=== PATIENT | male | born 1960 | race Caucasian/White ===

== ENCOUNTER 2017-05-16 19:32 | Inpatient (IN) | payer MEDICAID ==
[~2017-05-16] VITALS: Ht 175.3 cm; Wt 70.3 kg
--- NOTE | 2017-05-16 19:40 | NUR ---
PT BIBRA FOR SOB/LABORED BREATHING; "RECENTLY DX WITH PNA AT [facility]" PT AOX3 RR EVEN AND UNLABORED. NO SOB NOTED. NAD NOTED. NO NVD AT THIS TIME. PT GOWNED AND PLACED ON MONITOR WAITING FOR MD NOGUEIRA.
--- NOTE | 2017-05-16 19:54 | NUR ---
LAB AT BEDSIDE FOR EVAL.
[2017-05-16] MEDS ORDERED: IV NS 0.9% 1,000 ML BAG IV ONE ×2 (20:00→21:00)
[2017-05-16 20:06] LABS: BASOPHILS % (AUTO) 0.4 % (0.0-2.0); EOSINOPHILS # (AUTO) 0.7 /CMM (0.0-0.7); EOSINOPHILS % (AUTO) 7.4 % (0.0-6.0); HEMATOCRIT 26 % (39-51); HEMOGLOBIN 7.7 g/dL (13.5-17.5); LYMPHOCYTES % (AUTO) 33.2 % (20.0-44.0); MEAN CORPUSCULAR HEMOGLOBIN 22 PG (26.0-33.0); MEAN CORPUSCULAR HGB CONC 30 g/dl (31.0-36.0); MEAN CORPUSCULAR VOLUME 73 fL (80-96); MONOCYTES # (AUTO) 0.7 /CMM (0.1-1.30); MONOCYTES % (AUTO) 7.4 % (2.0-12.0); NEUTROPHILS # (AUTO) 4.5 /CMM (1.8-8.9); NEUTROPHILS % (AUTO) 51.6 % (43.0-81.0); PLATELET COUNT (AUTO) 506 /CMM (150-450); RDW COEFFICIENT OF VARIATION 17.5 (11.5-15.0); RED BLOOD CELL COUNT(AUTO) 3.52 MIL/uL (4.5-6.0); WHITE BLOOD COUNT (AUTO) 8.9 K/uL (4.3-11.0)
[2017-05-16 20:15] LABS: CALCIUM, SERUM 8.2 mg/dL (8.5-10.1); CARBON DIOXIDE 17 mmol/L (21-32); CHLORIDE 103 mmol/L (98-107); CREATININE 1.1 mg/dL (0.6-1.3); GLUCOSE 243 mg/dL (74-106); POTASSIUM 3.7 mmol/L (3.5-5.1); SODIUM SERUM 135 mmol/L (136-145); UREA NITROGEN, BLOOD 13 mg/dL (7-18)
[2017-05-16 20:19] LABS: INR 1.04 (0.87-1.13)
--- NOTE | 2017-05-16 20:21 | NUR ---
RECTAL TEMP 93.8. DR KOVACS MADE AWARE
[2017-05-16 20:23] LABS: TROPONIN I 0.131 ng/mL (0.00-0.056)
--- NOTE | 2017-05-16 20:25 | NUR ---
PT PLACED ON BARE HUGGER PER
[2017-05-16 20:28] LABS: ALANINE AMINOTRANSFERASE 18 U/L (12-78); ALBUMIN 3.2 g/dL (3.4-5.0); ALKALINE PHOSPHATASE 115 U/L (46-116); ASPARTATE AMINOTRANSFERASE 23 U/L (15-37); B-TYPE NATRIURETIC PEPTIDE 286 PG/ML (0-125); BILIRUBIN,TOTAL 0.2 mg/dL (0.2-1.0); TOTAL PROTEIN, SERUM 7.5 g/dL (6.4-8.2)
--- NOTE | 2017-05-16 20:51 | NUR ---
AT BEDSIDE FOR EVAL.
--- NOTE | 2017-05-16 20:52 | NUR ---
INFLUENZA SWAB COLLECTED. CALLED LAB FOR RECEIVER/LABORER.
--- NOTE | 2017-05-16 20:58 | NUR ---
PRASANNA AT BEDSIDE
[2017-05-16] MEDS ORDERED: PANTOPRAZOLE 40 MG VIAL IV ONE (21:00)
[2017-05-16] MEDS ORDERED: IV NS 0.9% 500 ML BAG IV ONE (21:00)
[2017-05-16] MEDS ORDERED: ASPIRIN 325 MG TABLET ONE (21:00)
[2017-05-16] MEDS ORDERED: PANTOPRAZOLE 40 MG VIAL ONE (21:00)
[2017-05-16] MEDS ORDERED: PIPERACILLIN /TAZOBACTAM 3.375 G in IV D5W 50 ML IV ONE (21:00)
[2017-05-16] MEDS ORDERED: ASPIRIN 325 MG TABLET PO ONE (21:00)
[2017-05-16] MEDS ORDERED: PIPERACILLIN /TAZOBACTAM 3.375 G VIAL IV ONE (21:13)
[2017-05-16] MEDS ORDERED: IOHEXOL-350 100 ML VIAL IV ONE (21:24)
[2017-05-16] MEDS ORDERED: IV NS 0.9% 250 ML IV ONE (21:24)
[2017-05-16 21:30] VITALS: BP 150/100
--- NOTE | 2017-05-16 21:31 | NUR ---
PT TO CT.
--- NOTE | 2017-05-16 21:31 | NUR ---
RN NOTES RECEIVED PATIENT AWAKE VIA STRETCHER FROM ER WITH NO DISTRESS NOTED. BREATHING EVEN AND UNLABORED. ON O2 AT 2LPM VIA NASAL CANNULA WELL TOLERATED. ALERT AND ORIENTED, VERBALLY ABLE TO COMMUNICATE NEEDS. NO COMPLAINT OF PAIN OR DISCOMFORT. CONTINENT OF BOWEL AND BLADDER FUNCTION. WILL CONTINUE TO MONITOR. KEPT CLEAN AND DRY.
--- NOTE | 2017-05-16 21:40 | NUR ---
REPORT GIVEN TO JAGUAR GARCÍA FOR SAL.
[2017-05-16] MEDS ORDERED: ENOXAPARIN SODIUM 40 MG/0.4 ML DISP.SYRIN SQ ONE (21:43)
[2017-05-16] MEDS ORDERED: ENOXAPARIN SODIUM 30 MG/0.3 ML DISP.SYRIN ONE (21:43)
--- NOTE | 2017-05-16 21:51 | NUR ---
patient returned from ct via [facility]
--- NOTE | 2017-05-16 21:55 | NUR ---
UNABLE TO COLLECT URINE AT THIS TIME. DR. KOVACS MADE AWARE
--- NOTE | 2017-05-16 21:56 | NUR ---
LAB AT BEDSIDE FOR BLOOD DRAW
--- NOTE | 2017-05-16 22:03 | NUR ---
REPORT GIVEN TO CLARENCE FOR FELI BED 118.
--- NOTE | 2017-05-16 22:07 | NUR ---
PT REASSIGNED TO FELI BED 109
--- NOTE | 2017-05-16 22:16 | NUR ---
INFORMED RN SHELL TO COLLECT UA D/T UNABLE TO COLLECT UA AT THIS TIME.
[2017-05-16] MEDS ORDERED: ZOLPIDEM TARTRATE 5 MG TABLET PO PRN (23:30)
[2017-05-16] MEDS ORDERED: HEPARIN INFUSION/D5W 500 ML IV PRN (23:30)
[2017-05-16] MEDS ORDERED: MAGNESIUM HYDROXIDE 30 ML UDC PO PRN (23:30)
[2017-05-16] MEDS ORDERED: ACETAMINOPHEN 325 MG TABLET PO PRN (23:30)
[2017-05-16] MEDS ORDERED: Z GUARD REMEDY 2 OZ OINT TP PRN (23:30)
[2017-05-16] MEDS ORDERED: DEXTROSE 50%-WATER 50 ML DISP.SYRIN IV PRN (23:30)
[2017-05-16] MEDS ORDERED: ONDANSETRON HCL/PF 4 MG/2 ML VIAL IVP PRN (23:30)
[2017-05-17] VITALS (27 sets, daily range): BP systolic 113–156; BP diastolic 54–127
[2017-05-17] MEDS: IV NS 0.9% 1,000 ML IV PRN ×2 (00:16→09:34)
[2017-05-17] MEDS ORDERED: HEPARIN INFUSION/D5W 500 ML IV ONE (00:38)
[2017-05-17] MEDS ORDERED: HEPARIN SODIUM, PORCINE 5000 UNITS/1 ML VIAL IVP ONE (01:00)
[2017-05-17] MEDS: PIPERACILLIN /TAZOBACTAM 3.375 G in IV D5W 50 ML IV SCH ×5 (01:00→23:42)
--- NOTE | 2017-05-17 01:00 | NUR ---
RN NOTES ZOSYN FOR 0100 NOT GIVEN. INITIAL DOSE GIVEN AT ER AT 2100. NEXT DOSE TO BE GIVEN AT 0600
[2017-05-17 02:32] LABS: TROPONIN I 0.499 ng/mL (0.00-0.056)
[2017-05-17] MEDS ORDERED: PIPERACILLIN /TAZOBACTAM 3.375 G VIAL IV ONE (05:44)
[2017-05-17] MEDS ORDERED: HYDROCODONE/APAP 5/325MG 1 EACH TABLET ONE (05:45)
[2017-05-17] MEDS: HYDROCODONE/APAP 5/325MG 1 EACH TABLET PO PRN (05:47)
[2017-05-17] MEDS ORDERED: MORPHINE SULFATE INJ 2 MG/ML DISP.SYRIN IV PRN (06:30)
[2017-05-17] MEDS ORDERED: MORPHINE SULFATE INJ 4 MG/ML DISP.SYRIN ONE (06:32)
[2017-05-17 06:33] LABS: BASOPHILS % (AUTO) 0.4 % (0.0-2.0); EOSINOPHILS # (AUTO) 0.5 /CMM (0.0-0.7); EOSINOPHILS % (AUTO) 5.2 % (0.0-6.0); HEMATOCRIT 22 % (39-51); LYMPHOCYTES # (AUTO) 2.9 /CMM (0.8-4.8); LYMPHOCYTES % (AUTO) 28.1 % (20.0-44.0); MEAN CORPUSCULAR HEMOGLOBIN 22 PG (26.0-33.0); MEAN CORPUSCULAR HGB CONC 31 g/dl (31.0-36.0); MEAN CORPUSCULAR VOLUME 72 fL (80-96); MONOCYTES # (AUTO) 0.9 /CMM (0.1-1.30); NEUTROPHILS # (AUTO) 5.9 /CMM (1.8-8.9); NEUTROPHILS % (AUTO) 57.3 % (43.0-81.0); PLATELET COUNT (AUTO) 499 /CMM (150-450); RDW COEFFICIENT OF VARIATION 18.3 (11.5-15.0); RED BLOOD CELL COUNT(AUTO) 3.05 MIL/uL (4.5-6.0); WHITE BLOOD COUNT (AUTO) 10.2 K/uL (4.3-11.0)
[2017-05-17 06:44] LABS: CREATININE 0.8 mg/dL (0.6-1.3); MAGNESIUM 1.7 mg/dL (1.8-2.4); PHOSPHORUS 3.7 mg/dL (2.5-4.9); POTASSIUM 3.9 mmol/L (3.5-5.1)
[2017-05-17 06:45] LABS: HEMOGLOBIN 6.8 g/dL (13.5-17.5)
[2017-05-17] MEDS: BLOOD SUGAR DIAGNOSTIC 1 EACH STRIP IN SCH ×4 (07:16→22:02)
--- NOTE | 2017-05-17 07:22 | NUR ---
RN NOTES RESIDENT COMPLAINING OF CHEST PAIN AT 0600, PAIN WORST DURING INHALATION. GAVE NORCO 5/325, NOT EFFECTIVE. CALLED MD AND OBTAINED ORDER FOR MORPHINE 2MG Q4 HOURS FOR SEVERE PAIN. ADMINISTERED 2MG AT 0630, WITH A SLIGHT RELIEF. LABS CALLED REGARDING HGB 6.8 AND TROPONIN OF 0.497. RELAYED TO MD AND ENDORSED TO AM SHIFT. VITAL SIGNS WNL. REPOSITION FOR COMFORT. KEPT CLEAN AND DRY
[2017-05-17] MEDS: HYDROMORPHONE INJ 2 MG/ML DISP.SYRIN IV PRN ×2 (07:50→12:24)
--- NOTE | 2017-05-17 07:55 | NUR ---
FELI RN NOTE PATIENT IN BED , ALERT ,ORIENTED ON HEPARIN DRIP ORDERED PER GLENNY PTT 77.0, [place] 6 [place] [address] AND WILL START NOW AT 1100 PER HOSPITAL PROTOCOL ON2L NC SAT 93% RT FA HL INTACT AND LT AC HL INTACT NO S\S INFECTION ,BED IN LOWEST AND LOCKED POSITION, SEEN BY KIRSTIE MONTESINOS FILTER TIP CATCHER NOTIFIED THAT PATIENT WITH SEVERE CHEST PAIN MORPHINE NOR HELP WITH PAIN ORDERED, DILAUDID , ALSO NOTIFIED THAT HG 6.8 STATED RECHECK IN 1200 CBC ALSO AWARE THAT TROPONIN 0.497, STATED MONITOR PATIENT BED IN LOWEST AND LOCKED POSITION , CALL LIGHT WITHIN REACH WILL CONT TO MONITOR CLOSELY
--- NOTE | 2017-05-17 08:01 | NUR ---
RN NOTES HEPARIN STARTED 0119 AND ATTEMPTED TO DOCUMENT HOURLY IV INFUSION BUT UNABLE TO SAVE. TOTAL DOSE INFUSED OF 06 AFTER 5 HOURS IS 125ML.
[2017-05-17] MEDS ORDERED: EMTR1TAB17 PO (08:26)
[2017-05-17] MEDS ORDERED: GABA-534 PO (08:26)
[2017-05-17] MEDS ORDERED: DOLU50TA PO (08:26)
[2017-05-17] MEDS ORDERED: METO-356 PO (08:26)
[2017-05-17 09:29] LABS: IRON, SERUM 9 ug/dl (50-175); TOTAL IRON BINDING CAPACITY 421 ug/dl (250-450)
--- NOTE | 2017-05-17 09:30 | NUR ---
FELI RN NOTE \ DR MCDERMOTT AWARE THAT GF 6.7 WITH ORDER TO TRANSFUSE 1 UNIT PRBC ORDER CARRIED OUT
[2017-05-17] MEDS: Magnesium 1GM/D5W 100ML PREMIX 100 ML IV SCH ×2 (09:34→10:38)
--- NOTE | 2017-05-17 10:00 | NUR ---
PROFESSIONAL SYSTEM ADMINISTRATOR NOTE DR CHAVEZ NOTIFIED THAT TROPONIN 0.497 STATED THAT WILL SEE PATIENT
[2017-05-17 10:35] LABS: EOSINOPHILS % (MANUAL) 1 % (0-4); LYMPHOCYTES % (MANUAL) 31 % (16-48); MONOCYTES % (MANUAL) 5 % (0-11.0); NEUTROPHILS % (MANUAL) 63 (42-76)
--- NOTE | 2017-05-17 10:53 | NUR ---
FELI RN NOTE PER DR MCDERMOTT OK TO STOP HEPARIN DRIP
--- NOTE | 2017-05-17 10:56 | NUR ---
FELI RN NOTE PER DR CHAVEZ OK TO TRANSFER TO ICU FOR FURTHER EVAL
--- NOTE | 2017-05-17 11:20 | NUR ---
PHYTOPATHOLOGIST NOTE TRANSFERRED TO ICU BY ACLS PROTOCOL BY BED ,REPORT GIVEN TO NELSON MONTESINOS
--- NOTE | 2017-05-17 11:30 | NUR ---
INITIAL MILKING MACHINE OPERATOR NOTE RCVD PT AWAKE AND ALERT, SHOWING NO S/O DISTRESS AT THIS TIME. PT C/O PAIN OVER CHEST AREA, "FEELS LIKE HE HAS BUBBLES/GAS OVER CHEST". ST ON TELE. TOLERATING O2 VIA NC 6L. VOIDING TO URINAL PER REPORT. IV ACCESSES C/D/I/PATENT. NO S/O INFILTRATION/PHLEBITIS OBSERVED UPON FLUSHING, IVF INFUSING. WILL CONTINUE TO MONITOR PT FOR SAFETY AND COMFORT. CALL LIGHT WITHIN REACH.
[2017-05-17 11:33] LABS: ABG BASE EXCESS -2.5 mmol/L; ABG OXYGEN SATURATION 96.2 % (92.0-98.5); ABG PCO2 35.4 mmHg (35.0-45.0); ABG PH 7.409 (7.350-7.450); ABG PO2 91.8 mmHg (75.0-100.0); AaDO2 174.3 mmHg; COHb 0.6 % (0.5-1.5); MetHb 0.6 % (0.0-1.5); SITE, ABG Right Radial; VENT MODE, BG 6L N/C
[2017-05-17] MEDS: HEPARIN INFUSION/D5W 500 ML IV PRN (11:59)
[2017-05-17] MEDS ORDERED: HEPARIN INFUSION/D5W 500 ML IV PRN (12:00)
--- NOTE | 2017-05-17 12:19 | NUR ---
DEAN OF BOYS NOTE VASU, CRN SPOKE WITH DR. ANAYA WHO RECOMMENDED TO RESUME HEPARIN GTT. MEDICATION ORDERED AND STARTED PER PROTOCOL. DR. CHANDLER IN UNIT ASSESSING PT RECOMMENDED TO HOLD OFF ON ANY GI PROCEDURE PENDING BLOOD TRANSFUSION, IF HGB STABLE POST-TRANSFUSION THEN PT TO BE OBSERVED FOR ANY ACTIVE BLEEDING.
[2017-05-17 12:29] LABS: BASOPHILS % (AUTO) 0.1 % (0.0-2.0); EOSINOPHILS # (AUTO) 0.2 /CMM (0.0-0.7); EOSINOPHILS % (AUTO) 1.8 % (0.0-6.0); HEMATOCRIT 21 % (39-51); LYMPHOCYTES # (AUTO) 2.1 /CMM (0.8-4.8); LYMPHOCYTES % (AUTO) 16.2 % (20.0-44.0); MEAN CORPUSCULAR HEMOGLOBIN 22 PG (26.0-33.0); MEAN CORPUSCULAR HGB CONC 31 g/dl (31.0-36.0); MEAN CORPUSCULAR VOLUME 71 fL (80-96); MONOCYTES # (AUTO) 1.1 /CMM (0.1-1.30); MONOCYTES % (AUTO) 8.6 % (2.0-12.0); NEUTROPHILS # (AUTO) 9.7 /CMM (1.8-8.9); NEUTROPHILS % (AUTO) 73.3 % (43.0-81.0); PLATELET COUNT (AUTO) 450 /CMM (150-450); RDW COEFFICIENT OF VARIATION 19.3 (11.5-15.0); RED BLOOD CELL COUNT(AUTO) 2.97 MIL/uL (4.5-6.0); WHITE BLOOD COUNT (AUTO) 13.3 K/uL (4.3-11.0)
[2017-05-17 13:24] LABS: HEMOGLOBIN 6.6 g/dL (13.5-17.5)
[2017-05-17] MEDS: SOD FERRIC GLUC 125 MG in IV NS 0.9% 100 ML IV SCH (13:37)
[2017-05-17 13:42] LABS: LYMPHOCYTES % (MANUAL) 18 % (16-48); MONOCYTES % (MANUAL) 4 % (0-11.0); NEUTROPHILS % (MANUAL) 78 (42-76)
[2017-05-17] MEDS: PANTOPRAZOLE 40 MG VIAL IV SCH (15:39)
--- NOTE | 2017-05-17 16:22 | NUR ---
AUTOMATIC MACHINES SUPERVISOR NOTE PT TOLERATED FIRST UNIT OF BLOOD, NO REACTIONS OBSERVED/REPORTED BY PT. WILL CONTINUE TO MONITOR. SECOND UNIT STARTED.
[2017-05-17] MEDS: INSULIN REGULAR, HUMAN 100 UNIT/ML 3 ML VIAL SQ PRN ×2 (17:49→23:10)
--- NOTE | 2017-05-17 18:38 | NUR ---
SMALL BUSINESS BANKING OFFICER NOTE PT TOLERATED SECOND UNIT OF BLOOD. NO REACTIONS REPORTED/OBSERVED, VITAL SIGNS REMAIN STABLE. NO WHEEZING OBSERVED. PT ALERT/ORIENTED, SR ON TELE, GOOD SATURATION ON 4L VIA NC. VOIDING TO URINAL PER PT NO PROBLEM WITH URINATION. IV SITES C/D/I/PATENT. NO S/O INFILTRATION/PHLEBITIS OBSERVED IVF INFUSING. PT'S CARE WILL BE ENDORSED TO OIL PRODUCER RN FOR CONTINUITY OF CARE. LAB CALLED SPOKE TO JALEN TO COME AND DRAW PTT/CBC AT 1900 SINCE BLOOD TRANSFUSION WAS ONGOING AT 1800.
[2017-05-17 19:16] LABS: BASOPHILS % (AUTO) 0.1 % (0.0-2.0); EOSINOPHILS # (AUTO) 0.2 /CMM (0.0-0.7); EOSINOPHILS % (AUTO) 1.4 % (0.0-6.0); HEMATOCRIT 28 % (39-51); HEMOGLOBIN 8.6 g/dL (13.5-17.5); LYMPHOCYTES # (AUTO) 1.9 /CMM (0.8-4.8); LYMPHOCYTES % (AUTO) 14.5 % (20.0-44.0); MEAN CORPUSCULAR HEMOGLOBIN 23 PG (26.0-33.0); MEAN CORPUSCULAR HGB CONC 31 g/dl (31.0-36.0); MEAN CORPUSCULAR VOLUME 75 fL (80-96); MONOCYTES # (AUTO) 1.3 /CMM (0.1-1.30); MONOCYTES % (AUTO) 9.8 % (2.0-12.0); NEUTROPHILS # (AUTO) 9.5 /CMM (1.8-8.9); NEUTROPHILS % (AUTO) 74.2 % (43.0-81.0); PLATELET COUNT (AUTO) 435 /CMM (150-450); RED BLOOD CELL COUNT(AUTO) 3.71 MIL/uL (4.5-6.0); WHITE BLOOD COUNT (AUTO) 12.8 K/uL (4.3-11.0)
[2017-05-18] VITALS (20 sets, daily range): BP systolic 117–142; BP diastolic 68–92
[2017-05-18] MEDS: HYDROMORPHONE INJ 2 MG/ML DISP.SYRIN IV PRN (02:46)
[2017-05-18] MEDS: IV NS 0.9% 1,000 ML IV PRN ×2 (03:01→13:52)
[2017-05-18 04:23] LABS: BASOPHILS % (AUTO) 0.4 % (0.0-2.0); EOSINOPHILS # (AUTO) 0.4 /CMM (0.0-0.7); EOSINOPHILS % (AUTO) 3.4 % (0.0-6.0); HEMATOCRIT 26 % (39-51); HEMOGLOBIN 8.1 g/dL (13.5-17.5); LYMPHOCYTES # (AUTO) 2.6 /CMM (0.8-4.8); LYMPHOCYTES % (AUTO) 22.8 % (20.0-44.0); MEAN CORPUSCULAR HEMOGLOBIN 24 PG (26.0-33.0); MEAN CORPUSCULAR HGB CONC 32 g/dl (31.0-36.0); MEAN CORPUSCULAR VOLUME 75 fL (80-96); MONOCYTES # (AUTO) 1.5 /CMM (0.1-1.30); NEUTROPHILS # (AUTO) 6.9 /CMM (1.8-8.9); NEUTROPHILS % (AUTO) 60.4 % (43.0-81.0); PLATELET COUNT (AUTO) 422 /CMM (150-450); RED BLOOD CELL COUNT(AUTO) 3.43 MIL/uL (4.5-6.0); WHITE BLOOD COUNT (AUTO) 11.4 K/uL (4.3-11.0)
[2017-05-18 04:46] LABS: ALBUMIN 2.6 g/dL (3.4-5.0); BILIRUBIN,TOTAL 1.2 mg/dL (0.2-1.0); CALCIUM, SERUM 8.1 mg/dL (8.5-10.1); CREATININE 0.8 mg/dL (0.6-1.3); MAGNESIUM 2.1 mg/dL (1.8-2.4); POTASSIUM 3.8 mmol/L (3.5-5.1); TOTAL PROTEIN, SERUM 6.5 g/dL (6.4-8.2); TROPONIN I 0.108 ng/mL (0.00-0.056)
[2017-05-18] MEDS: PIPERACILLIN /TAZOBACTAM 3.375 G in IV D5W 50 ML IV SCH ×3 (06:05→17:07)
--- NOTE | 2017-05-18 07:10 | NUR ---
RN NOTE RECEIVED PT ON BED, A/Ox3, RESPIRATION EVEN AND UNLABORED, ON 4L O2 N/C, NO SOB NOTED, ON TELE SR HR IN 90'S , L AC IV SITE G 20 AND R FA IV SITE G22 AND R FA IV SITE G 18 CDI, HEPARIN GTT AT 1050 UNITS /HR RUNNING VIA LFA IV SITES , NS AT 100CC/HR RUNNING VIA R FA IV SITE , SR UP x3, CALL LIGHTS WITHIN EASY REACH, WILL CONTINUE TO MONITOR PT CLOSELY AND NOTIFY MD FOR ANY SIGNIFICANT CHANGES .
[2017-05-18] MEDS: BLOOD SUGAR DIAGNOSTIC 1 EACH STRIP IN SCH ×4 (08:13→21:22)
[2017-05-18] MEDS: HEPARIN INFUSION/D5W 500 ML IV PRN (10:04)
--- NOTE | 2017-05-18 11:00 | NUR ---
RN NOTES PT TAKES O2 N/C OFF AT TIMES , PT EDUCATED ABOUT HOW IMPORTANT IT IS TO KEEP O2 ON AT ALL TIMES ,PT VERBALIZES UNDERSTANDING.
[2017-05-18] MEDS: HYDROCODONE/APAP 5/325MG 1 EACH TABLET PO PRN ×2 (11:57→21:22)
--- NOTE | 2017-05-18 12:42 | NUR ---
Social service consult requested by Dr. Koch for homelessness. Pt. is a 56 year old male who was admitted to [facility] for DVT/Respiratory distress. SW met with pt. bedside, however pt. was eating his lunch. SW to follow up and meet with pt. in an hour.
[2017-05-18] MEDS: SOD FERRIC GLUC 125 MG in IV NS 0.9% 100 ML IV SCH (13:41)
[2017-05-18] MEDS: PANTOPRAZOLE 40 MG VIAL IV SCH (13:52)
--- NOTE | 2017-05-18 14:08 | NUR ---
JOMAR met with pt. bedside. Pt. is alert and oriented x 4. Pt. appeared a little angry of his financial situation. Pt. is homeless and has been for a while. Pt. resides in his car. Pt. stated he use to receive SSDI benefits, however he stopped receiving them and filed again last May. SW encouraged pt. to follow up with Social Security office. SW to give pt. list of Social security offices prior to discharge. Pt. states he has no money for gas, or for his public storage which costs him $250 per month. Pt. states his car will be towed too. Pt. denies alcohol and drug use stating, " I have no money to do either of them". Pt. requested for money from JOMAR. JOMAR informed pt. that the hospital cannot provide him with money but can give him referrals and resources. Pt. was unhappy with the answer and stated he doesn't want any referrals. JOMAR also offered pt. [facility] referral and homeless resources, however pt. declined. SW to offer pt. referrals again prior to discharge. According to JAGUAR Ruiz, pt. to downgrade to Tele later today.
--- NOTE | 2017-05-18 16:00 | NUR ---
RN NOTES HEPARIN GTT AT 1050 UNITS PER HR RUNNING VIA L ARM IV SITE, PT BETO ANY DISTRESS , CONTINUE TO MONITOR .
--- NOTE | 2017-05-18 17:35 | NUR ---
R4N NOTES REPORT GIVEN TO SANTIAGO MONTESINOS ON , PT TRASFEREED TO ROOM 312-1 ,TELE BED, IN STABLE CONDITION ,
--- NOTE | 2017-05-18 17:45 | NUR ---
clerk telegraph service notes received a transfer patient from ICU. report given ICU nurse. patient is on heparin drip @ 1050 units and INF infusing well. No complaint of pain or discomfort at this time. On tele monitor SR heart rate of 78. No SOB or distress noted, on 02 @ 4lpm via NC with 02 sat of 97%. Patient is alert and oriented x 4, verbally responsive and able to make needs known. kept patient clean and comfortable in bed call light with in patient reach, will continue to monitor accordingly.
--- NOTE | 2017-05-18 19:16 | NUR ---
PUBLIC HEALTH NUTRITIONIST CLOSING NOTES All needs provided, attended, and anticipated. Kept patient clean and comfortable in bed, call light with in patient reach, endorsed to next shift RN to continue care. On tele monitor SR heart rate of 78. On heparin drip infusing well.
--- NOTE | 2017-05-18 19:30 | NUR ---
COAL PASSER NOTE: PATIENT RESTING IN BED, NO ACUTE DISTRESS NOTED. BREATHING EVEN AND UNLABORED, NO SOB NOTED. IV TO LFA IN PLACE, INFUSING HEPARIN DRIP AT 1050 UNITS/HOUR PER ENDORSED FROM DAY SHIFT. IV TO RFA IN PLACE, INFUSING NS AT 100 ML/HR. HL TO RFA IN PLACE. NO S/S OF HYPER/HYPOGLYCEMIA NOTED. BED LOCKED AND IN LOWEST POSITION, CALL LIGHT IN REACH. WILL CONTINUE TO MONITOR.
--- NOTE | 2017-05-18 21:45 | NUR ---
CARTON LINER NOTE: PATIENT COMPLAINS OF PAIN TO CHEST 11/03, NORCO 5/325MG ORAL GIVEN PER MD ORDER. PATIENT BLOOD SUGAR LEVEL 114MG/DL, NO INSULIN NEEDED PER SLIDING SCALE. NO S/S OF HYPOGLYCEMIA NOTED. SNACKS AT BEDSIDE. WILL CONTINUE TO MONITOR.
--- NOTE | 2017-05-18 22:30 | NUR ---
ADMINISTRATIVE SUPPORT ASSOC NOTE: REVIEWED PATIENT CHART AND HEPARIN DRIP FLOW SHEET. PATIENT SHOULD HAVE BEEN RUNNING HEPARIN DRIP AT 900 UNITS/HR PER HEPARIN PROTOCOL. VERIFIED CALCULATIONS WITH CHARGE NURSE, JAGUAR GARCIA. DOSE RATE ADJUSTED TO 900 UNITS/HR AND PTT/, PT/INR ORDERED FOR 6 HOURS FROM NOW AT 0430. NO ACTIVE BLEEDING NOTED. WILL CONTINUE TO MONITOR.
[2017-05-19 00:25] VITALS: BP 150/99
[2017-05-19] MEDS ORDERED: PIPERACILLIN /TAZOBACTAM 3.375 G VIAL IV ONE ×2 (00:27→05:12)
[2017-05-19] MEDS: PIPERACILLIN /TAZOBACTAM 3.375 G in IV D5W 50 ML IV SCH ×5 (00:45→23:44)
[2017-05-19 04:19] VITALS: BP 133/88
[2017-05-19 06:29] LABS: BASOPHILS % (AUTO) 0.1 % (0.0-2.0); EOSINOPHILS # (AUTO) 0.6 /CMM (0.0-0.7); EOSINOPHILS % (AUTO) 6.8 % (0.0-6.0); HEMATOCRIT 25 % (39-51); HEMOGLOBIN 7.9 g/dL (13.5-17.5); LYMPHOCYTES # (AUTO) 2.3 /CMM (0.8-4.8); MEAN CORPUSCULAR HEMOGLOBIN 24 PG (26.0-33.0); MEAN CORPUSCULAR HGB CONC 32 g/dl (31.0-36.0); MEAN CORPUSCULAR VOLUME 75 fL (80-96); MONOCYTES # (AUTO) 0.9 /CMM (0.1-1.30); MONOCYTES % (AUTO) 10.3 % (2.0-12.0); NEUTROPHILS # (AUTO) 5.1 /CMM (1.8-8.9); NEUTROPHILS % (AUTO) 56.8 % (43.0-81.0); PLATELET COUNT (AUTO) 412 /CMM (150-450); RDW COEFFICIENT OF VARIATION 19.1 (11.5-15.0); RED BLOOD CELL COUNT(AUTO) 3.35 MIL/uL (4.5-6.0); WHITE BLOOD COUNT (AUTO) 8.9 K/uL (4.3-11.0)
[2017-05-19 06:39] LABS: ALBUMIN 2.2 g/dL (3.4-5.0); BILIRUBIN,TOTAL 0.3 mg/dL (0.2-1.0); CREATININE 0.6 mg/dL (0.6-1.3); MAGNESIUM 1.9 mg/dL (1.8-2.4); PHOSPHORUS 2.9 mg/dL (2.5-4.9); POTASSIUM 3.7 mmol/L (3.5-5.1)
[2017-05-19 06:41] LABS: INR 1.04 (0.87-1.13)
[2017-05-19 06:45] LABS: TROPONIN I 0.053 ng/mL (0.00-0.056)
[2017-05-19] MEDS: HYDROCODONE/APAP 5/325MG 1 EACH TABLET PO PRN ×4 (06:53→22:18)
[2017-05-19] MEDS: BLOOD SUGAR DIAGNOSTIC 1 EACH STRIP IN SCH ×4 (06:53→22:18)
[2017-05-19 07:03] VITALS: BP 134/81
--- NOTE | 2017-05-19 07:10 | NUR ---
telegraph dispatcher initial notes Received patient in bed, asleep, head of bed elevated, no SOB or distress noted, on 02 @ 2lpm via NC with 02 saturation of 95%. No facial grimace noted. per night nurse she just gave patient his pain medication. On heparin drip @ 900 units. IV intact and patent with IVF infusing well. Kept patient clean and comfortable in bed, call light with in patient reach. Will continue to monitor accordingly.
--- NOTE | 2017-05-19 07:10 | NUR ---
ELECTION JUDGE NOTE: PATIENT RESTING IN BED, NO ACUTE DISTRESS NOTED. BREATHING EVEN AND UNLABORED, NO SOB NOTED. IV TO LFA IN PLACE, INFUSING HEPARIN DRIP AT 900 UNITS/HOUR. IV TO RFA IN PLACE, INFUSING NS AT 100 ML/HR. HL TO RFA IN PLACE. PATIENT BLOOD SUGAR LEVEL 152 MG/DL, PATIENT TO RECEIVE 2 UNITS OF INSULIN PER SLIDING SCALE, NO S/S OF HYPER/HYPOGLYCEMIA NOTED. PATIENT COMPLAINS OF ABDOMINAL PAIN 7/10, NORCO 5/325MG ORAL GIVEN PER MD ORDER. BED LOCKED AND IN LOWEST POSITION, CALL LIGHT IN REACH. WILL ENDORSE TO DAY NURSE TO CONTINUE WITH PLAN OF CARE.
[2017-05-19 08:00] VITALS: BP 134/81
[2017-05-19] MEDS: INSULIN REGULAR, HUMAN 100 UNIT/ML 3 ML VIAL SQ PRN ×3 (12:14→22:23)
[2017-05-19] MEDS: HEPARIN INFUSION/D5W 500 ML IV PRN (12:19)
--- NOTE | 2017-05-19 12:45 | NUR ---
ms rn notes PTT result of 41 received from the lab and 2800 units of heparin bolus given due to protocol and increase rate from 900 units/hr to 1050units/hr per protocol and PTT after 6 hours and ordered. Will continue to monitor accordingly.
[2017-05-19] MEDS ORDERED: HEPARIN SODIUM, PORCINE 1000 UNIT/1 ML VIAL IV ONE (14:00)
[2017-05-19] MEDS: SOD FERRIC GLUC 125 MG in IV NS 0.9% 100 ML IV SCH (14:25)
[2017-05-19 16:00] VITALS: BP_SYST 128; BP_SYST 129; BP_DIAS 80; BP_DIAS 81
[2017-05-19] MEDS: IV NS 0.9% 1,000 ML IV PRN (17:08)
[2017-05-19 18:14] LABS: HEMOGLOBIN 8.1 g/dL (13.5-17.5)
--- NOTE | 2017-05-19 19:15 | NUR ---
ms rn closing notes All needs provided, attended, and anticipated. Kept patient clean and comfortable in bed, call light with in patient reach, endorsed to next shift RN to continue care. On heparin drip infusing well @ 1050 units/hr.
[2017-05-19 20:00] VITALS: BP 134/75
--- NOTE | 2017-05-19 20:45 | NUR ---
REGISTERED NURSING PROFESSOR NOTE: RECEIVED PATIENT FROM 3RD FLOOR, NO ACUTE DISTRESS NOTED. BREATHING EVEN AND UNLABORED, NO SOB NOTED. IV TO LFA IN PLACE, INFUSING HEPARIN DRIP AT 1050 UNITS/HOUR PER ENDORSED FROM DAY SHIFT. IV TO RFA IN PLACE, INFUSING NS AT 100 ML/HR. HL TO RFA IN PLACE. NO S/S OF HYPER/HYPOGLYCEMIA NOTED. BED LOCKED AND IN LOWEST POSITION, CALL LIGHT IN REACH. WILL CONTINUE TO MONITOR.
--- NOTE | 2017-05-19 21:45 | NUR ---
MS RN NOTE: PATIENT PTT RESULTS ARE 58, NO CHANGE TO HEPARIN DRIP PER PROTOCOL. PTT/PT/INR LABS ORDERED FOR TOMORROW MORNING PER PROTOCOL. NO ACTIVE BLEEDING NOTED. WILL CONTINUE TO MONITOR.
[2017-05-20] MEDS: HYDROCODONE/APAP 5/325MG 1 EACH TABLET PO PRN ×3 (06:16→17:30)
[2017-05-20] MEDS: PIPERACILLIN /TAZOBACTAM 3.375 G in IV D5W 50 ML IV SCH ×4 (06:16→23:26)
[2017-05-20 06:37] LABS: BASOPHILS % (AUTO) 0.6 % (0.0-2.0); EOSINOPHILS # (AUTO) 0.5 /CMM (0.0-0.7); EOSINOPHILS % (AUTO) 7.1 % (0.0-6.0); HEMATOCRIT 28 % (39-51); HEMOGLOBIN 8.8 g/dL (13.5-17.5); LYMPHOCYTES % (AUTO) 26.2 % (20.0-44.0); MEAN CORPUSCULAR HEMOGLOBIN 24 PG (26.0-33.0); MEAN CORPUSCULAR HGB CONC 32 g/dl (31.0-36.0); MEAN CORPUSCULAR VOLUME 76 fL (80-96); MONOCYTES # (AUTO) 0.8 /CMM (0.1-1.30); MONOCYTES % (AUTO) 10.9 % (2.0-12.0); NEUTROPHILS # (AUTO) 4.2 /CMM (1.8-8.9); NEUTROPHILS % (AUTO) 55.2 % (43.0-81.0); PLATELET COUNT (AUTO) 499 /CMM (150-450); RDW COEFFICIENT OF VARIATION 19.6 (11.5-15.0); RED BLOOD CELL COUNT(AUTO) 3.68 MIL/uL (4.5-6.0); WHITE BLOOD COUNT (AUTO) 7.6 K/uL (4.3-11.0)
[2017-05-20 06:52] LABS: INR 1.01 (0.87-1.13)
[2017-05-20 06:57] LABS: CALCIUM, SERUM 8.2 mg/dL (8.5-10.1); CREATININE 0.6 mg/dL (0.6-1.3); POTASSIUM 3.6 mmol/L (3.5-5.1)
--- NOTE | 2017-05-20 07:00 | NUR ---
MS RN NOTE: PATIENT RESTING IN BED, NO ACUTE DISTRESS NOTED. BREATHING EVEN AND UNLABORED, NO SOB NOTED. IV TO LFA IN PLACE, INFUSING HEPARIN DRIP AT 1050 UNITS/HOUR PER ENDORSED FROM DAY SHIFT. IV TO RFA IN PLACE, INFUSING NS AT 100 ML/HR. HL TO RFA IN PLACE. BLOOD SUGAR LEVEL 124 MG/DL, NO INSULIN NEEDED PER SLIDING SCALE, NO S/S OF HYPER/HYPOGLYCEMIA NOTED. BED LOCKED AND IN LOWEST POSITION, CALL LIGHT IN REACH. WILL ENDORSE TO DAY NURSE TO CONTINUE WITH PLAN OF CARE.
--- NOTE | 2017-05-20 07:10 | NUR ---
MS RN OPENING NOTES RECEIVED PT FROM NIGHTSHIFT NURSE IN STABLE CONDITION. NO SOB OR SIGNS OF DISTRESS NOTED. BREATHING IS EVEN AND UNLABORED. PT DENIES ANY PAIN AT THIS TIME. LEFT FA IV NOTED TO BE PATENT AND INTACT INFUSING HEPARIN DRIP @ 1050 UNITS/HR. WILL ADJUST DOSE PER PROTOCOL. SECOND IV NOTED OT RIGHT FA INFUSING NS @ 100ML/HR. PT TOLERATING INFUSION WELL. NO REDNESS OR SIGNS OF INFILTRATION NOTED. NO SIGNS OF BLEEDING NOTED. BED IN LOW LOCKED POSITION, SIDE RAILS UP X2, CALL LIGHT WITHIN REACH. WILL CONTINUE TO MONITOR
[2017-05-20] MEDS: BLOOD SUGAR DIAGNOSTIC 1 EACH STRIP IN SCH ×4 (07:42→21:49)
[2017-05-20] MEDS: IV NS 0.9% 1,000 ML IV PRN ×2 (09:05→21:04)
[2017-05-20 09:50] VITALS: BP 125/83
[2017-05-20] MEDS ORDERED: HEPARIN SODIUM, PORCINE 5000 UNITS/1 ML VIAL IV ONE (10:00)
--- NOTE | 2017-05-20 10:35 | NUR ---
MS RN NOTES DR. TABOR'S OFFICE CALLED IN REGARDS TO IVC FILTER. TALKED TO TOMÁS THE PUBLIC AREA ATTENDANT WHO STATED THAT SHE WILL NOTIFY THE MD AND HAVE HIM CALL. WILL AWAIT CALL BACK
[2017-05-20] MEDS: SOD FERRIC GLUC 125 MG in IV NS 0.9% 100 ML IV SCH (14:06)
[2017-05-20] MEDS: HEPARIN INFUSION/D5W 500 ML IV PRN (14:15)
[2017-05-20 16:00] VITALS: BP 139/88
[2017-05-20 16:35] LABS: HEMOGLOBIN 8.7 g/dL (13.5-17.5)
--- NOTE | 2017-05-20 18:51 | NUR ---
MS RN CLOSING NOTES PT REMAINS STABLE. NO ACUTE CHANGES IN CONDITION DURING SHIFT. BREATHING REMAINS EVEN AND UNLABORED. HEPARIN DRIP CONTINUE TO INFUSE PER PROTOCOL. NEEDS ANTICIPATED FOR AND ATTENDED TO. ALL DUE MEDS GIVEN. WILL ENDORSE TO NIGHTSHIFT NURSE FOR SAL
--- NOTE | 2017-05-20 19:45 | NUR ---
MS RN NOTES ON BED WITH HOB ELEVATED.SLEEPING,AROUSABLE TO TACTILE STIMULI.NO SOB.HEPARIN DRIP IN PROGRESS AT 1200 RATE,APTT AT 1600 WAS 56.WILL MONITOR CLOSELY FOR BLEEDING.WITH NS AT 100ML/HR INFUSING ON RFA VIA IV PUMP.BED ON LOW POSITION AND LOCK.CALL LIGHT IN REACH,NEEDS ANTICIPATED.
[2017-05-20 20:00] VITALS: BP 154/92
--- NOTE | 2017-05-20 21:30 | NUR ---
MS RN NOTES ACCU-CHECK BLOOD SUGAR CHECK 140,REFUSED INSULIN COVERAGE.
--- NOTE | 2017-05-20 21:30 | NUR ---
MS RN NOTES INSTRUCTED NPO POST MIDNIGHT FOR EGD IN THE MORNING AT [address] CHANDLER.WILL SIGN CONSENT IN THE MORNING
[2017-05-20] MEDS: INSULIN REGULAR, HUMAN 100 UNIT/ML 3 ML VIAL SQ PRN (21:54)
[2017-05-20 22:06] VITALS: BP 154/92
[2017-05-21] MEDS: HYDROCODONE/APAP 5/325MG 1 EACH TABLET PO PRN ×4 (00:45→20:43)
--- NOTE | 2017-05-21 00:45 | NUR ---
MS RN NOTES MOANS WITH FACIAL GRIMACE NOTED.CLAIMED PAIN ON HIS BACK AND RIGHT SIDE HIP,6/10 OM PAIN SCALE.MEDICATE WITH NORCO 5/325MG,1 TAB PO ORDERED.
--- NOTE | 2017-05-21 02:00 | NUR ---
MS RN NOTES SLEEPING,PAIN MANAGEMENT EFFECTIVE
--- NOTE | 2017-05-21 05:30 | NUR ---
MS RN NOTES ACCU-CHECK BLOOD SUGAR CHECK 100,NO INSULIN COVERAGE.
[2017-05-21] MEDS: BLOOD SUGAR DIAGNOSTIC 1 EACH STRIP IN SCH ×4 (05:34→22:03)
[2017-05-21] MEDS: PIPERACILLIN /TAZOBACTAM 3.375 G in IV D5W 50 ML IV SCH ×4 (05:38→23:34)
--- NOTE | 2017-05-21 05:43 | NUR ---
MS RN NOTES PAIN MANAGEMENT C/O GENERALIZED PAIN 6/10 ON PAIN SCALE.NORCO 5/325MG,1 TAB PO GIVEN WITH SIPS OF WATER
--- NOTE | 2017-05-21 06:35 | NUR ---
MS RN NOTES KEPT NPO FOR NOW FOR EGD BY DR CHANDLER AT 1030.IVF INFUSING.HEPARIN DRIP AT 1200 UNITS/24ML/HR RATE IN PROGRESS VIA IV PUMP.NO BLEEDING NOTED.CALL LIGHT IN REACH,CONSENT FOR THE PROCEDURE SIGNED BY PATIENT.IN NO ACUTE DISTRESS.WILL ENDORSE TO TAMI MONTESINOS FOR SAL.
[2017-05-21 06:36] LABS: BASOPHILS % (AUTO) 0.3 % (0.0-2.0); EOSINOPHILS # (AUTO) 0.6 /CMM (0.0-0.7); EOSINOPHILS % (AUTO) 8.8 % (0.0-6.0); HEMATOCRIT 26 % (39-51); HEMOGLOBIN 8.4 g/dL (13.5-17.5); LYMPHOCYTES # (AUTO) 1.9 /CMM (0.8-4.8); MEAN CORPUSCULAR HEMOGLOBIN 24 PG (26.0-33.0); MEAN CORPUSCULAR HGB CONC 32 g/dl (31.0-36.0); MEAN CORPUSCULAR VOLUME 76 fL (80-96); MONOCYTES # (AUTO) 0.8 /CMM (0.1-1.30); MONOCYTES % (AUTO) 12.4 % (2.0-12.0); NEUTROPHILS # (AUTO) 3.1 /CMM (1.8-8.9); NEUTROPHILS % (AUTO) 48.5 % (43.0-81.0); PLATELET COUNT (AUTO) 483 /CMM (150-450); RDW COEFFICIENT OF VARIATION 20.5 (11.5-15.0); RED BLOOD CELL COUNT(AUTO) 3.45 MIL/uL (4.5-6.0); WHITE BLOOD COUNT (AUTO) 6.5 K/uL (4.3-11.0)
--- NOTE | 2017-05-21 07:06 | NUR ---
MS MONTESINOS NOTES DR JOHNSON MESSAGE BACK,NO NEW ORDER. Addendum: 05/21/17 at 0707 by DONNELL HERNDON RN ABOVE NOTES NOT FOR THIS PATIENT
[2017-05-21 07:15] LABS: CALCIUM, SERUM 7.7 mg/dL (8.5-10.1); CREATININE 0.6 mg/dL (0.6-1.3); POTASSIUM 3.2 mmol/L (3.5-5.1)
--- NOTE | 2017-05-21 07:30 | NUR ---
M/S RN - AM Assessment Patient awake, A/O x 4, denies chest pain, no apparent distress seen, currently on 2 lpm via nasal cannula, no c/o SOB at this time. Relayed to Dr. Hirsch that pt is currently on heparin drip and scheduled for EGD with biopsy today at 10:30 am. Per Md, hold heparin drip and resume after EGD per protocol. Patient kept NPO for procedure. All needs attended and met. Will continue to monitor closely.
[2017-05-21 08:00] VITALS: BP 132/80
[2017-05-21] MEDS ORDERED: POTASSIUM CHLORIDE 20 MEQ TAB.PRT.SR PO SCH (08:00)
--- NOTE | 2017-05-21 10:52 | NUR ---
M/S RN - Notes Patient sent to GI lab for EGD under the care of Dr. Olsen. Consent for EGD signed by pt and pre-op checklist completed. LFA and RFA saline lock both patent and intact with no complications noted. Patient endorsed accordingly.
[2017-05-21] MEDS: POTASSIUM CHLORIDE 20 MEQ TAB.PRT.SR PO SCH ×3 (12:25→14:50)
[2017-05-21] MEDS: SOD FERRIC GLUC 125 MG in IV NS 0.9% 100 ML IV SCH (13:26)
[2017-05-21] MEDS: APIXABAN 5 MG TABLET PO SCH ×2 (14:51→22:04)
[2017-05-21 16:00] VITALS: BP 137/85
--- NOTE | 2017-05-21 18:19 | NUR ---
M/S RN - End of shift notes No new events seen, denies chest pain, no apparent distress, no c/o SOB. Patient started on oral anticoagulant Eliquis, no adverse reaction noted. All needs attended and met. Will continue with current treatment plan.
--- NOTE | 2017-05-21 19:33 | NUR ---
MS RN NOTES RECEIVED ON BED SLEEPING,AROUSABLE TO VERBAL STIMULI,NO SOB,O2 IN USED AT 2L/NC TO KEEP O2 SAT ABOVE 90%.WITH RIGHT AND LEFT SALINE LOCK INTACT AND PATENT.ENCOURAGED BED REST.CALL LIGHT IN REACH,NEEDS ANTICIPATED.
[2017-05-21 20:00] VITALS: BP 143/89
--- NOTE | 2017-05-21 20:00 | NUR ---
MS RN NOTES PTT THIS TIME WAS 32,H/H 9.2.ON ELIQUIS 10MG PO BID
[2017-05-21 20:40] VITALS: BP 143/89
--- NOTE | 2017-05-21 20:43 | NUR ---
MS RN NOTES PAIN MANAGEMENT C/O GENERALIZED PAIN 6/10 ON PAIN SCALE.NORCO 5/325MG,1 TAB PO GIVEN
[2017-05-21 21:40] LABS: HEMOGLOBIN 9.1 g/dL (13.5-17.5)
--- NOTE | 2017-05-21 22:00 | NUR ---
MS RN NOTES ACCU-CHECK BLOOD SUGAR CHECK 127,NO INSULIN COVERAGE.
--- NOTE | 2017-05-22 02:00 | NUR ---
MS RN NOTES SLEEPING,KEPT WARM AND COMFORTABLE
[2017-05-22] MEDS: PIPERACILLIN /TAZOBACTAM 3.375 G in IV D5W 50 ML IV SCH ×2 (05:29→11:49)
--- NOTE | 2017-05-22 05:30 | NUR ---
MS RN NOTES AWAKE,C/O GENERALIZED PAIN 7/10 ON PAIN SCALE.NORCO 5/325MG.1 TAB PO GIVEN
[2017-05-22] MEDS: BLOOD SUGAR DIAGNOSTIC 1 EACH STRIP IN SCH ×2 (05:33→12:04)
[2017-05-22] MEDS: HYDROCODONE/APAP 5/325MG 1 EACH TABLET PO PRN ×2 (05:39→12:02)
--- NOTE | 2017-05-22 05:52 | NUR ---
MS RN NOTES ACCU-CHECK BLOOD SUGAR CHECK 101,NO INSULIN COVERAGE.
--- NOTE | 2017-05-22 06:42 | NUR ---
MS RN NOTES NO SOB,IV ABX TOLERATED WELL NO ACTIVE BLEEDING NOTED.CALL LIGHT IN REACH,NEEDS ATTENDED.CASE MANAGEMENT FOR D/C PLANNING.WILL ENDORSE TO DAY NURSE FOR SAL.
[2017-05-22 06:44] LABS: EOSINOPHILS # (AUTO) 0.6 /CMM (0.0-0.7); EOSINOPHILS % (AUTO) 8.3 % (0.0-6.0); HEMATOCRIT 30 % (39-51); HEMOGLOBIN 9.4 g/dL (13.5-17.5); LYMPHOCYTES # (AUTO) 1.8 /CMM (0.8-4.8); LYMPHOCYTES % (AUTO) 26.5 % (20.0-44.0); MEAN CORPUSCULAR HEMOGLOBIN 24 PG (26.0-33.0); MEAN CORPUSCULAR HGB CONC 32 g/dl (31.0-36.0); MEAN CORPUSCULAR VOLUME 76 fL (80-96); MONOCYTES # (AUTO) 1.1 /CMM (0.1-1.30); MONOCYTES % (AUTO) 16.7 % (2.0-12.0); NEUTROPHILS # (AUTO) 3.2 /CMM (1.8-8.9); NEUTROPHILS % (AUTO) 48.5 % (43.0-81.0); PLATELET COUNT (AUTO) 530 /CMM (150-450); RDW COEFFICIENT OF VARIATION 21.6 (11.5-15.0); RED BLOOD CELL COUNT(AUTO) 3.87 MIL/uL (4.5-6.0); WHITE BLOOD COUNT (AUTO) 6.7 K/uL (4.3-11.0)
[2017-05-22 06:56] LABS: CALCIUM, SERUM 8.5 mg/dL (8.5-10.1); CREATININE 0.7 mg/dL (0.6-1.3)
--- NOTE | 2017-05-22 07:20 | NUR ---
RN NOTES PATIENT ALERT AND ORIENTED X3, DENIES PAIN OR DISCOMFORT NOTED, BREATHING EVEN AND UNLABORED, NO SOB NOTED, NEEDS ATTENDED AND MET, CALL LIGHT WITHIN REACH, WILL CONTINUE TO MONITOR.
[2017-05-22 07:54] LABS: EOSINOPHILS % (MANUAL) 6 % (0-4); LYMPHOCYTES % (MANUAL) 26 % (16-48); MONOCYTES % (MANUAL) 18 % (0-11.0); NEUTROPHILS % (MANUAL) 50 (42-76)
[2017-05-22 08:00] VITALS: BP 120/83
[2017-05-22] MEDS: APIXABAN 5 MG TABLET PO SCH (09:12)
[2017-05-22] MEDS: INSULIN REGULAR, HUMAN 100 UNIT/ML 3 ML VIAL SQ PRN (11:59)
--- NOTE | 2017-05-22 14:01 | NUR ---
SW met with pt. bedside to discuss discharge plan. Pt. stated he will be going to live with his uncle Dave in [place]. Pt. called his uncle while SW was in the room. [place]. [place] be [place] to [id number] [address]. Pt' RN Paco was updated regarding discharge plan.
[2017-05-22] MEDS ORDERED: AMOX-430 PO (14:09)
[2017-05-22] MEDS ORDERED: APIX5TAB PO (14:09)
[2017-05-22] MEDS ORDERED: HYDR-3326 PO (14:09)
--- NOTE | 2017-05-22 15:41 | NUR ---
RN NOTES PATIENT ALERT AND ORIENTED X4, RECEIVED DISCHARGE INSTRUCTIONS AND VERBALIZED UNDERSTANDING. EXPLAINED MEDICATIONS ADMINISTRATIONS, BREATHING EVEN AND UNLABORED, NO SOB, DENIES PAIN OR DISCOMFORT AT THIS TIME, SKIN ASSESSMENT COMPLETED, SKIN DRY AND INTACT, PIV REMOVED, PRESSURE APPLIED. BELONGINGS RECONCILED AND COMPLETE. PATIENT SIGNED DISCHARGE PAPERWORKS. PER NURSING VALVE INSPECTOR, PATIENT CAN GO TO PHARMACY ACROSS THE [address] TO GET MEDICATIONS, THEN COME BACK TO THE LOBBY AND WILL CALL TAXI FOR PATIENT.
--- NOTE | 2017-05-22 15:51 | NUR ---
THRESHING DEPARTMENT SUPERVISOR PATIENT LEFT IN NO DISTRESS, ASSISTED BY YULISSA TO THE LOBBY. PATIENT WILL GO TO PHARMACY [address] THE [address] TO [employer] DRIVER THE MEDICATIONS. THEN WILL COME BACK FOR THE TAXI TRANSPORTATION TO HIS UNCLE'S HOUSE.
--- NOTE | 2017-05-22 17:15 | NUR ---
RN NOTES PATIENT CAME BACK AND TAXI REQUESTED FOR TRANSPORTATION TO PATIENT'S UNCLE HOME. PATIENT LEFT IN NO DISTRESS, WAS ABLE TO GET MEDICATIONS FROM THE PHARMACY.
[2017-05-28] MEDS ORDERED: APIXABAN 5 MG TABLET PO SCH (09:00)
== END 2017-05-22 15:15 | disposition home or self-care (01) | DRG 720 ==
LOC: ER 19:32 → TELE-TD 21:57 → ICU 05-17 11:05 → TELE 05-18 17:30 → MED 05-19 08:49 → MEDSG2 05-19 20:40
PROVIDERS: ADMIT Nurse Practitioner Acute Care; ATTEND Nurse Practitioner Acute Care
DX: A41.9 Sepsis, unspecified organism (principal); I26.99 Other pulmonary embolism without acute cor pulmonale; I21.A1 Myocardial infarction type 2; J96.01 Acute respiratory failure with hypoxia; E87.2 Acidosis; J18.9 Pneumonia, unspecified organism; C16.9 Malignant neoplasm of stomach, unspecified; K92.2 Gastrointestinal hemorrhage, unspecified; R65.20 Severe sepsis without septic shock; E44.1 Mild protein-calorie malnutrition; E87.1 Hypo-osmolality and hyponatremia; I82.431 Acute embolism and thrombosis of right popliteal vein; D72.829 Elevated white blood cell count, unspecified; E88.09 Other disorders of plasma-protein metabolism, not elsewhere classified; Z68.22 Body mass index [BMI] 22.0-22.9, adult; D50.9 Iron deficiency anemia, unspecified; D47.3 Essential (hemorrhagic) thrombocythemia; I27.20 Pulmonary hypertension, unspecified; E11.9 Type 2 diabetes mellitus without complications; I25.10 Atherosclerotic heart disease of native coronary artery without angina pectoris; Z59.0 Homelessness; Z79.899 Other long term (current) drug therapy
CPT/HCPCS: 36415; 36600; 71045-TC; 80048-TC; 80053-TC; 80061-TC; 80076-TC; 82962-TC; 83540-TC; 83605-TC; 83615-TC; 83735-TC; 83880; 84100-TC; 84484-TC; 85025-TC; 85027-TC; 85610-TC; 85730-TC; 86850-TC; 86921-TC; 87040-TC; 87081-TC; 87400; 93307-TC; 93971-TC; A4606; C9113; G0480; J1170; J1644; J1650; J1815; J2270; J2405; J2543; J2704; J2916; J3475; J7030; J7040; J7050; J7060; P9016-BL; Q9967; Z7610